=== PATIENT | female | born 1955 | race Caucasian/White ===

== ENCOUNTER → 2017-04-06 | Outpatient (CLI) | payer OTHER | LOC: BRMIMAGING 14:52 | PROVIDERS: ATTEND Obstetrics & Gynecology | DX: Z12.31 Encounter for screening mammogram for malignant neoplasm of breast (principal) ==

== ENCOUNTER → 2017-07-04 | Outpatient (CLI) | payer OTHER | LOC: CIMAGING 15:05 | PROVIDERS: ATTEND Internal Medicine | DX: M70.22 Olecranon bursitis, left elbow (principal) | CPT/HCPCS: 73080-PO ==

== ENCOUNTER 2017-08-03 15:59 | Emergency (ER) | payer OTHER ==
--- NOTE | 2017-08-03 16:09 | EDPHY ---
H & P Time Seen by Provider: 08/03/17 16:09 HPI/ROS: HPI CHIEF COMPLAINT: Fall on Coumadin, lightheadedness HISTORY OF PRESENT ILLNESS: Patient very pleasant 62-year-old female she is on Coumadin she has a history of DVT, she presents emergency room with lightheadedness. 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 She fell landing on her left hip and left arm she did have head strike. She was able to recover from this and went to work. Around 330 in the afternoon she got up to use the bathroom from a seated position and when she stood up she very lightheaded. She denies any chest pain or shortness of breath denies dizziness room spinning she states that she feels very lightheaded felt like she was going to pass out when she stood up. She states that she drank well today. She denies any neck pain or chest pain. Does state that she struck her head. She is unsure of her last INR. She decided come to the emergency room to get checked out. It is noted she has ecchymosis to left inner arm, as well as tenderness to palpation over the left lateral hip. No evidence of head trauma on exam. Past Medical History: DVT on Coumadin Past Surgical History: Denies any recent surgery Social History: Denies daily use of drugs alcohol tobacco. Family History: Noncontributory ROS REVIEW OF SYSTEMS: A comprehensive 10 point review of systems is otherwise negative aside from elements mentioned in the history of present illness. Exam Constitutional appears well nontoxic no acute distress triage nursing summary reviewed, vital signs reviewed, awake/alert. Eyes normal conjunctivae and sclera, EOMI, PERRLA. HENT head/neck is atraumatic. Evidence of trauma on exam., moist mucus membranes, no epistaxis, neck supple/ no meningismus, no raccoon eyes. Respiratory clear to auscultation bilaterally, normal breath sounds, no respiratory distress, no wheezing. Cardiovascular rate normal, regular rhythm, no murmur, no edema, distal pulses normal. Gastrointestinal soft, non-tender, no rebound, no guarding, normal bowel sounds, no distension, no pulsatile mass. Genitourinary no CVA tenderness. Musculoskeletal tender palpation over the left lateral hip, however neurovascularly intact distally, good distal pulse and full range of motion, no midline vertebral tenderness, full range of motion, no calf swelling, no tenderness of extremities, no meningismus, good pulses, neurovascularly intact. Skin ecchymosis to left upper arm inner arm region. Neurologic awake, alert and oriented x 3, AAOx3, moves all 4 extremities equally, motor intact, sensory intact, CN II-XII intact, normal cerebellar, normal vision, normal speech. Psychiatric normal mood/affect. Heme/Lymph/Immune no lymphadenopathy. Differential Diagnosis: Includes but is not limited to in a particular order intracranial bleed on Coumadin, closed head injury, subdural, epidural, traumatic subarachnoid, multiple contusions, left hip contusion, left hip fracture, supratherapeutic INR, electrolyte disturbance, orthostatic hypertension, dehydration cardiac arrhythmia Medical Decision Making: Plan for this patient IV establishment IV fluid bolus 1 L normal saline, orthostatics, check point care troponin, check electrolytes, CT scan head without contrast, chest x-ray, left hip x-ray and re-evaluate. Re-evaluation: EKG interpretation by me on record in [employer] system. Impression time of EKG 1626, this is sinus rhythm rate of 94 left anterior fascicular block present. No ST elevation no significant ST depression when I compare this EKG to her old EKG dated 07/23/2010 very similar morphology and unchanged. CT scan head without contrast negative for acute traumatic injury. Called to me by Dr. Lafleur. 1826: I did re-evaluate the patient this time she is resting comfortably. However every time I go to stand her up from a laying or sitting position she gets very lightheaded has to sit back down. She has sensation that she is going to pass out. I did review her blood work. Her CBC and chemistry is appropriate. D-dimer is negative troponin negative she has a nonischemic EKG that is close to her baseline EKG. Her CT scan head, chest x-ray and hip x-ray unremarkable. Her INR is appropriate. She has had 2 L of fluid here in given that every time ago to stand her she gets lightheaded she will need to be admitted the hospital she cannot safely be discharged home. Essentially she has positive orthostatics as when she goes from lying or sitting to standing she gets very lightheaded. Not room spinning. Not vertiginous. No chest pain or shortness of breath. 1834: I did go re-evaluate the patient she has no chest pain or shortness of breath she is resting comfortably. Blood pressure 90s over 50s which is somewhat low for her. She is afebrile. She has received 2 L of fluid here in the emergency room. I believe she is volume depleted. This may be contributing to her lightheadedness when she stands up. Additionally her left hip is where she fell on an left arm she does have a hematoma to her left hip on exam, this time is soft no evidence of expanding hematoma on exam at this time. Will need to watch her hip and arm given that she is on Coumadin. She has agreed to stay in the hospital overnight. I did speak with Dr. Metzger who agrees to admit. 2036: EMS was here for transport and upon getting ready to transport the patient we took her vitals again and noted her blood pressure was 70s over 40s in her right arm. We will able to get a manual blood pressure 90s over 50s in her right arm and her left arm shows a blood pressure 90s over 50s. However given her left hip as hematoma nail and feels firm I question if she is bleeding into her left hip. I have ordered a CT scan of her abdomen pelvis with IV contrast and left hip left leg for trauma. Additionally I have ordered a repeat CBC i-STAT H&H, and lactic acid. Additionally I consult Trauma surgery Dr. Edwards, and reviewed the case with her. Will discuss CT results with her. 20:44: I-STAT lactic acid resulted 3.73 additionally hemoglobin hematocrit resulted on I-STAT hemoglobin is 11.6 hematocrit 34, this is a drop from her initial CBC 4 hours ago. Some of this may be delusional due to 2 L however the crit did drop from 42-34. Patient is 2nd IV placed. 2100: I have canceled the patient's medical surgeon admission bed. Type and screen has been ordered. CT scan results are pending. 2101: Patient's blood pressure currently 106/68. This was by automatic cuff and manual. Patient is resting comfortably no acute distress. Will discuss CT results with Dr. Edwards. 2106: Patient remains hemodynamically stable no acute distress. She is not hypotensive. She does have swelling to left lateral hip. CT scan abdomen pelvis and CT left lower extremity shows a rather large hematoma with possible small amount of extra. The CT has been reviewed by Dr. Ewa Crews additionally Dr. Deborah Edwards has seen and evaluated the CT. Plan will be for the patient be transported to [facility] emergency room, to be evaluated by Dr. Edwards Trauma. I spoke with the emergency room attending Dr. James, discussed the case in detail. Patient will be directly transferred to [facility] emergency room trauma. Dr. Edwards to see and evaluate the patient. Vitamin K as been given. She is getting her 3rd L fluid. She has soft blood pressures been remained stable. 2137: Spoke with Dr. Edwards, there is no available beds in the ICU or step-down. They are requesting that we transfer to [facility] [place] I spoke with [facility] [place] ER attending is requesting that I speak with the trauma surgeon. 2140: Spoke with direct connect with [facility], Will have tauma surgeon call back. 2148: Spoke to [facility] [place] Dr. Montemayor, who is accepted this patient as a trauma patient direct admission to the ICU. 2149: I have updated the patient about her condition and medical acute problems , she understands she needs to be admitted the ICU in agrees she agrees for admission to [facility]. Emtala form has been filled out. Blood pressure is currently 88/63, heart rate 101, pulse ox 97% on room air. I discussed about giving her blood products including PCC and FFP however these are unavailable at this emergency room. I do not feel that she needs on crossed matched blood at this time. However if she continues to be more hypotensive this may need to be given before transport. Critical Care: Total Critical Care Time Spent Managing this Patient: 65 Minutes. This time was spent Exclusively with this patient. This Care was exclusive of procedures. The Organ System/life at risk was hemodynamics due to blood loss into the left leg This Patient was in Critical Condition because blood loss and left leg with transient hypotension. 2200: I did reexamine her left thigh, it is tense but still soft, she denies any distal numbness or tingling or weakness she does have a good distal pulse and warm extremity. Compartment syndrome is something to watch out for. 2210: At time of transfer patient hemodynamically stable and stable for transfer to [facility]. Source: Patient - Personal History Tetanus Vaccine Date: 01/07/2013 Constitutional: Initial Vital Signs Temperature (C) 36.3 C 08/03/17 16:07 Heart Rate 107 H 08/03/17 16:07 Respiratory Rate 20 08/03/17 16:07 O2 Sat (%) 97 08/03/17 16:07 O2 Delivery Mode Room Air Allergies/Adverse Reactions: aspirin Allergy (Unknown, Verified 01/08/13 11:29) codeine [Codeine] Allergy (Unknown, Verified 01/08/13 11:29) Home Medications: Medication Instructions Recorded Famotidine [Pepcid] 20 mg PO DAILY 07/23/10 Coumadin 08/03/17 Medical Decision Making - Diagnostics Imaging Results: Imaging Impressions Chest X-Ray 08/03/17 16:15 Impression: Negative chest.. Head CT 08/03/17 16:15 Impression: Normal noncontrast CT of the brain. Results called to Dr. Alex Patel at 4:45 PM at the time of the interpretation. Hip X-Ray 08/03/17 16:15 Impression: Negative radiographs of the left hip. Extremity CT 08/03/17 20:21 Impression: 1. There is a large deep subcutaneous hematoma peripheral lateral to the gluteus musculature, with 2 separate tiny sentinel acute bleeds occurring. 2. There is no acute osseous abnormality observed. There is no intra-abdominal visceral injury. CT Scan of the Left Thigh: The entirety of the left buttock hematoma and surrounding inflammatory changes of the subcutaneous adipose are seen. There is no evidence of a femoral fracture. Impression: Left buttock hematoma with surrounding inflammatory changes, and no acute osseous abnormality. Findings were discussed with Jt Panchal MD at 21:21 PM, on 08/03/2017, and the images were also reviewed with Dr. Deborah Edwards. Abdomen CT 08/03/17 20:26 Impression: 1. There is a large deep subcutaneous hematoma peripheral lateral to the gluteus musculature, with 2 separate tiny sentinel acute bleeds occurring. 2. There is no acute osseous abnormality observed. There is no intra-abdominal visceral injury. CT Scan of the Left Thigh: The entirety of the left buttock hematoma and surrounding inflammatory changes of the subcutaneous adipose are seen. There is no evidence of a femoral fracture. Impression: Left buttock hematoma with surrounding inflammatory changes, and no acute osseous abnormality. Findings were discussed with Jt Panchal MD at 21:21 PM, on 08/03/2017, and the images were also reviewed with Dr. Deborah Edwards. - Data Points Laboratory Results: Laboratory Results 08/03/17 16:18 08/03/17 08/03/17 08/03/17 21:23 21:01 20:42 WBC RBC Hgb POC Hgb 10.5 gm/dL L gm/dL (12.6-16.3) Hct POC Hct 31 % L % (38-47) MCV MCH MCHC RDW Plt Count MPV Neut % (Auto) Lymph % (Auto) [place] % (Auto) Eos % (Auto) Baso % (Auto) Nucleat RBC Rel Count Absolute Neuts (auto) Absolute Lymphs (auto) Absolute Monos (auto) Absolute Eos (auto) Absolute Basos (auto) Absolute Nucleated RBC Immature Gran % Immature Gran # PT INR D-Dimer POC Blood Source VENOUS Patient Temperature 37.0 DEGREES DEGREES POC VBG pH 7.40 (7.31-7.42) POC VBG pCO2 37 mmHg L mmHg (40-44) POC VBG pO2 TNP POC VBG HCO3 23 mEq/L mEq/L (22-26) POC VBG Total CO2 24 mEq/L mEq/L (21-27) POC VBG Base Excess -2.0 mEq/L mEq/L (-2.5-2.5) POC Mix VBG O2 Sat TNP POC Sodium 137 mEq/L mEq/L (135-145) POC Potassium 4.1 mEq/L mEq/L (3.3-5.0) POC Chloride 104 mEq/L mEq/L (97-110) POC Total CO2 POC BUN 17 mg/dL mg/dL (7-23) POC Creatinine 0.8 mg/dL mg/dL (0.6-1.0) POC Glucose 141 mg/dL H mg/dL (70-100) POC Lactic Acid Braxton 3.7 mmol/L H mmol/L (0.7-2.1) POC Calcium POC Total Bilirubin POC AST POC ALT POC Alk Phosphatase POC Troponin I POC Total Protein POC Albumin Patient ABO/Rh A POSITIVE Antibody Screen NEGATIVE 08/03/17 08/03/17 08/03/17 20:42 16:29 16:26 WBC RBC Hgb POC Hgb 11.6 gm/dL L gm/dL (12.6-16.3) Hct POC Hct 34 % L % (38-47) MCV MCH MCHC RDW Plt Count MPV Neut % (Auto) Lymph % (Auto) [place] % (Auto) Eos % (Auto) Baso % (Auto) Nucleat RBC Rel Count Absolute Neuts (auto) Absolute Lymphs (auto) Absolute Monos (auto) Absolute Eos (auto) Absolute Basos (auto) Absolute Nucleated RBC Immature Gran % Immature Gran # PT INR D-Dimer POC Blood Source Patient Temperature POC VBG pH POC VBG pCO2 POC VBG pO2 POC VBG HCO3 POC VBG Total CO2 POC VBG Base Excess POC Mix VBG O2 Sat POC Sodium 138 mEq/L mEq/L 139 mEq/L mEq/L (135-145) (135-145) POC Potassium 3.9 mEq/L mEq/L 3.8 mEq/L mEq/L (3.3-5.0) (3.3-5.0) POC Chloride 104 mEq/L mEq/L 106.0 mEq/L mEq/L (97-110) (97-110) POC Total CO2 20 mEq/L L mEq/L (22-31) POC BUN 17 mg/dL mg/dL 13 mg/dL mg/dL (7-23) (7-23) POC Creatinine 0.8 mg/dL mg/dL 1.1 mg/dL H mg/dL (0.6-1.0) (0.6-1.0) POC Glucose 144 mg/dL H mg/dL 133 mg/dL H mg/dL (70-100) (70-100) POC Lactic Acid Braxton POC Calcium 9.1 mg/dL mg/dL (8.5-10.4) POC Total Bilirubin 1.8 mg/dL H mg/dL (0.1-1.4) POC AST 30 IU/L IU/L (14-46) POC ALT 19 IU/L IU/L (9-52) POC Alk Phosphatase 51 IU/L IU/L (38-126) POC Troponin I 0.00 ng/mL ng/mL (0.00-0.08) POC Total Protein 7.6 g/dL g/dL (6.3-8.2) POC Albumin 3.9 g/dL g/dL (3.5-5.0) Patient ABO/Rh Antibody Screen 08/03/17 08/03/17 16:18 16:18 WBC 9.59 10^3/uL H 10^3/uL (3.80-9.50) RBC 4.41 10^6/uL 10^6/uL (4.18-5.33) Hgb 14.5 g/dL g/dL (12.6-16.3) POC Hgb Hct 42.9 % % (38.0-47.0) POC Hct MCV 97.3 fL fL (81.5-99.8) MCH 32.9 pg pg (27.9-34.1) MCHC 33.8 g/dL g/dL (32.4-36.7) RDW 13.6 % % (11.5-15.2) Plt Count 246 10^3/uL 10^3/uL (150-400) MPV 10.9 fL fL (8.7-11.7) Neut % (Auto) 66.7 % % (39.3-74.2) Lymph % (Auto) 25.5 % % (15.0-45.0) [place] % (Auto) 6.0 % % (4.5-13.0) Eos % (Auto) 0.7 % % (0.6-7.6) Baso % (Auto) 0.7 % % (0.3-1.7) Nucleat RBC Rel Count 0.0 % % (0.0-0.2) Absolute Neuts (auto) 6.38 10^3/uL 10^3/uL (1.70-6.50) Absolute Lymphs (auto) 2.45 10^3/uL 10^3/uL (1.00-3.00) Absolute Monos (auto) 0.58 10^3/uL 10^3/uL (0.30-0.80) Absolute Eos (auto) 0.07 10^3/uL 10^3/uL (0.03-0.40) Absolute Basos (auto) 0.07 10^3/uL 10^3/uL (0.02-0.10) Absolute Nucleated RBC 0.00 10^3/uL 10^3/uL (0-0.01) Immature Gran % 0.4 % % (0.0-1.1) Immature Gran # 0.04 10^3/uL 10^3/uL (0.00-0.10) PT 29.7 SEC H SEC (12.0-15.0) INR 2.84 H (0.83-1.16) D-Dimer 0.37 ug/mLFEU ug/mLFEU (0.00-0.50) POC Blood Source Patient Temperature POC VBG pH POC VBG pCO2 POC VBG pO2 POC VBG HCO3 POC VBG Total CO2 POC VBG Base Excess POC Mix VBG O2 Sat POC Sodium POC Potassium POC Chloride POC Total CO2 POC BUN POC Creatinine POC Glucose POC Lactic Acid Braxton POC Calcium POC Total Bilirubin POC AST POC ALT POC Alk Phosphatase POC Troponin I POC Total Protein POC Albumin Patient ABO/Rh Antibody Screen Medications Given: Discontinued Medications Sodium Chloride (Ns) 1,000 mls @ 0 mls/hr IV ONCE ONE PRN Reason: Wide Open Stop: 08/03/17 16:17 Last Admin: 08/03/17 17:27 Dose: 1,000 mls Sodium Chloride (Ns) 1,000 mls @ 0 mls/hr IV ONCE ONE PRN Reason: Wide Open Stop: 08/03/17 17:21 Last Admin: 08/03/17 17:27 Dose: 1,000 mls Phytonadione 10 mg/ Sodium (Chloride) 51 mls @ 102 mls/hr IV EDNOW ONE Stop: 08/03/17 21:34 Last Admin: 08/03/17 21:29 Dose: 51 mls Sodium Chloride (Ns) 1,000 mls @ 0 mls/hr IV ONCE ONE PRN Reason: Wide Open Stop: 08/03/17 21:14 Last Admin: 08/03/17 21:27 Dose: 1,000 mls Point of Care Test Results: Chemistry 08/03/17 08/03/17 08/03/17 21:23 20:42 16:29 POC Sodium 137 mEq/L mEq/L 138 mEq/L mEq/L 139 mEq/L mEq/L (135-145) (135-145) (135-145) POC Potassium 4.1 mEq/L mEq/L 3.9 mEq/L mEq/L 3.8 mEq/L mEq/L (3.3-5.0) (3.3-5.0) (3.3-5.0) POC Chloride 104 mEq/L mEq/L 104 mEq/L mEq/L 106.0 mEq/L mEq/L (97-110) (97-110) (97-110) POC Total CO2 20 mEq/L L mEq/L (22-31) POC BUN 17 mg/dL mg/dL 17 mg/dL mg/dL 13 mg/dL mg/dL (7-23) (7-23) (7-23) POC Creatinine 0.8 mg/dL mg/dL 0.8 mg/dL mg/dL 1.1 mg/dL H mg/dL (0.6-1.0) (0.6-1.0) (0.6-1.0) POC Glucose 141 mg/dL H mg/dL 144 mg/dL H mg/dL 133 mg/dL H mg/dL (70-100) (70-100) (70-100) POC Calcium 9.1 mg/dL mg/dL (8.5-10.4) POC Total Bilirubin 1.8 mg/dL H mg/dL (0.1-1.4) POC AST 30 IU/L IU/L (14-46) POC ALT 19 IU/L IU/L (9-52) POC Alk Phosphatase 51 IU/L IU/L (38-126) POC Troponin I POC Total Protein 7.6 g/dL g/dL (6.3-8.2) POC Albumin 3.9 g/dL g/dL (3.5-5.0) 08/03/17 16:26 POC Sodium POC Potassium POC Chloride POC Total CO2 POC BUN POC Creatinine POC Glucose POC Calcium POC Total Bilirubin POC AST POC ALT POC Alk Phosphatase POC Troponin I 0.00 ng/mL ng/mL (0.00-0.08) POC Total Protein POC Albumin Blood Gas/Lactic Acid-Arterial 08/03/17 20:42 POC Blood Source VENOUS Blood Gas/Lactic Acid-Venous 08/03/17 20:42 POC VBG pH 7.40 (7.31-7.42) POC VBG pCO2 37 mmHg L mmHg (40-44) POC VBG pO2 TNP POC VBG HCO3 23 mEq/L mEq/L (22-26) POC VBG Total CO2 24 mEq/L mEq/L (21-27) POC VBG Base Excess -2.0 mEq/L mEq/L (-2.5-2.5) POC Mix VBG O2 Sat TNP POC Lactic Acid Braxton 3.7 mmol/L H mmol/L (0.7-2.1) ISTAT H&H 08/03/17 08/03/17 21:23 20:42 POC Hgb 10.5 gm/dL L gm/dL 11.6 gm/dL L gm/dL (12.6-16.3) (12.6-16.3) POC Hct 31 % L % 34 % L % (38-47) (38-47) Departure - Departure Disposition: [facility] Clinical Impression: Lightheaded, Dehydration, Hematoma, Blood loss anemia Fall Qualifiers: Encounter type: initial encounter Qualified Code(s): W19.XXXA - Unspecified fall, initial encounter Contusion, hip Qualifiers: Encounter type: initial encounter Laterality: left Qualified Code(s): S70.02XA - Contusion of left hip, initial encounter Thigh hematoma Qualifiers: Encounter type: initial encounter Laterality: left Qualified Code(s): S70.12XA - Contusion of left thigh, initial encounter Condition: Critical Referrals: Eloy Horner MD [Primary Care Provider] - As per Instructions
[2017-08-03] MEDS: NS 1,000 ML IV ONE ×2 (16:40→17:27)
[2017-08-03 17:17] LABS: PLATELET COUNT 246 10^3/uL (150-400)
[2017-08-03] MEDS ORDERED: NS 1,000 ML IV ONE ×3 (17:20→21:25)
[2017-08-03 17:24] LABS: INR 2.84 (0.83-1.16); PROTIME(PATIENT) 29.7 SEC (12.0-15.0)
[2017-08-03] MEDS ORDERED: ONDANSETRON 4 MG/2 ML VIAL IVP PRN (18:36)
[2017-08-03] MEDS ORDERED: ACETAMINOPHEN 325 MG TAB PO PRN (18:36)
[2017-08-03] MEDS ORDERED: ONDANSETRON DISINTEGRATING 4 MG TAB PO PRN (18:36)
[2017-08-03] MEDS ORDERED: IOPAMIDOL (ISOVUE-300) 100 ML BTL ONE (20:30)
[2017-08-03] MEDS ORDERED: PHYTONADIONE 10 MG in NS 50 ML IV ONE (21:05)
[2017-08-03 22:42] VITALS: BP 94/58
--- NOTE | 2017-08-06 19:21 | CPEKG ---
Heart Rate: 94 RR Interval: 638 P-R Interval: 152 QRSD Interval: 94 QT Interval: 340 QTC Interval: 426 P Surprise: 27 QRS Surprise: -44 T Wave Surprise: 11 EKG Severity - ABNORMAL ECG - EKG Impression: SINUS RHYTHM EKG Impression: PROBABLE LEFT ATRIAL ABNORMALITY EKG Impression: LEFT ANTERIOR FASCICULAR BLOCK EKG Impression: BORDERLINE T ABNORMALITIES, ANTERIOR LEADS Electronically Signed By: Shaun Bailey 09-Aug-2017 20:36:21
== END 2017-08-03 22:15 | disposition short-term general hospital (02) ==
LOC: CED 15:59 → UNDOADMOB 18:30 → CEDHOLD 18:30 → CED 22:15
DX: S70.02XA Contusion of left hip, initial encounter (principal); S70.12XA Contusion of left thigh, initial encounter; E86.0 Dehydration; D50.0 Iron deficiency anemia secondary to blood loss (chronic); W01.198A Fall on same level from slipping, tripping and stumbling with subsequent striking against other object, initial encounter; Y92.89 Other specified places as the place of occurrence of the external cause; Y99.0 Civilian activity done for income or pay; Y93.89 Activity, other specified
CPT/HCPCS: 70450-PO; 71046-PO; 73502-PO; 73701-PO; 74177-PO; 80053-PO; 82435-PO; 82565-PO; 82947-PO; 83605-PO; 84132-PO; 84295-PO; 84484-PO; 84520-PO; 85014-PO; 96365; J3430; Q9967

== ENCOUNTER → 2018-04-13 | Outpatient (CLI) | payer OTHER | LOC: BRMIMAGING 14:58 | PROVIDERS: ATTEND Internal Medicine | DX: Z12.31 Encounter for screening mammogram for malignant neoplasm of breast (principal) ==